=== PATIENT | male | born 1955 | race Hispanic/Latino ===

== ENCOUNTER → 2021-07-09 | Day surgery (SDC) | payer MEDICARE ==
[2021-07-08 08:22] LABS: BASOPHILS # (AUTO) 0.1 (0.0-0.1); EOSINOPHILS # (AUTO) 0.3 (0.0-0.4); EOSINOPHILS % 4.1 % (0.0-6.0); HEMATOCRIT 36.4 % (38.2-49.6); HEMOGLOBIN 12.2 g/dL (14.0-18.0); LYMPHOCYTES # (AUTO) 2.3 (1.0-3.2); LYMPHOCYTES % 29.6 % (18.0-39.1); MEAN CORPUSCULAR HEMOGLOBIN 29.8 pg (28-32); MEAN CORPUSCULAR HGB CONC 33.5 g/dL (31-35); MONOCYTES # (AUTO) 0.7 (0.2-0.8); MONOCYTES % 8.5 % (4.4-11.3); NEUTROPHILS # (AUTO) 4.4 (2.1-6.9); NEUTROPHILS % 56.5 % (38.7-80.0); PLATELET COUNT 252 x10e3/uL (140-360); RED BLOOD COUNT 4.09 x10e6/uL (4.3-5.7); RED CELL DISTRIBUTION WIDTH 13.1 % (11.7-14.4)
[2021-07-08 08:39] LABS: ANION GAP 15.3 mmol/L (8-16); CALCIUM 9.4 mg/dL (8.4-10.2); CREATININE, SERUM 1.16 mg/dL (0.72-1.25); POTASSIUM 3.3 mmol/L (3.5-5.1)
[~2021-07-09] MED LIST: ATORVASTATIN CA20 MG PO; BUPIVACAINE 0.25% 30ML SDV ONE; CLOPIDOGREL75 MG PO; DEXAMETHASONE SOD PHOS INJ 4 MG/ML SDV ONE; LIDOCAINE HCL 2% LOCAL INJ 5 ML SDV VIAL INJ ONE; LOSARTAN POTASS25 MG PO; METFORMIN HCL500 MG PO; NIFEDIPINE ER30 M1 PO; ONDANSETRON HCL INJ 2MG/ML 2ML 2 MG/ML VIAL ONE; POVIDONE IODINE 0.05% 0.05 % ML PO ONE; PROPOFOL IV EMULSION 10 MG/ML 20 ML VIAL ONE; SEVOFLURANE INHAL SOLN 250 ML PEN BTL ONE; SODIUM CHLORIDE 0.9% 50ML 50 ML ONE
[2021-07-09 10:00] VITALS: BP 137/82
== END | disposition home or self-care (01) ==
LOC: OR 06:19
PROVIDERS: ATTEND Urology
DX: D29.0 Benign neoplasm of penis (principal); N40.1 Benign prostatic hyperplasia with lower urinary tract symptoms; N13.8 Other obstructive and reflux uropathy; R35.1 Nocturia; R39.14 Feeling of incomplete bladder emptying; R80.9 Proteinuria, unspecified; R81 Glycosuria; E11.9 Type 2 diabetes mellitus without complications; I10 Essential (primary) hypertension; K21.9 Gastro-esophageal reflux disease without esophagitis; Z01.810 Encounter for preprocedural cardiovascular examination; Z01.812 Encounter for preprocedural laboratory examination; Z01.818 Encounter for other preprocedural examination; Z20.822 Contact with and (suspected) exposure to COVID-19; Z79.02 Long term (current) use of antithrombotics/antiplatelets; Z79.84 Long term (current) use of oral hypoglycemic drugs; Z86.73 Personal history of transient ischemic attack (TIA), and cerebral infarction without residual deficits
CPT/HCPCS: 11420; 36415 ×2; 71046; 80048; 82948; 85025; 88305; 88342; 93005; J0690; U0002; 88304; J1100; J2001; J2405

== ENCOUNTER 2022-07-04 13:18 | Observation (INO) | payer MEDICARE ==
[~2022-07-04] VITALS: Ht 167.6 cm; Wt 78.9 kg
[~2022-07-04 13:18] MED LIST changes: -BUPIVACAINE 0.25% 30ML SDV ONE; -DEXAMETHASONE SOD PHOS INJ 4 MG/ML SDV ONE; -LIDOCAINE HCL 2% LOCAL INJ 5 ML SDV VIAL INJ ONE; -ONDANSETRON HCL INJ 2MG/ML 2ML 2 MG/ML VIAL ONE; -POVIDONE IODINE 0.05% 0.05 % ML PO ONE; -PROPOFOL IV EMULSION 10 MG/ML 20 ML VIAL ONE; -SEVOFLURANE INHAL SOLN 250 ML PEN BTL ONE; -SODIUM CHLORIDE 0.9% 50ML 50 ML ONE
[2022-07-04] MEDS ORDERED: ADENOSINE 6 MG/2 ML VIAL IV ONE ×2 (14:15→15:00)
[2022-07-04] MEDS ORDERED: ADENOSINE 6 MG/2 ML VIAL IV STA (14:30)
[2022-07-04] MEDS ORDERED: DIGOXIN INJ 0.25 MG/ML 2 ML AMP IV STA (14:41)
[2022-07-04] MEDS ORDERED: DILTIAZEM HCL 5 MG/ML 5 ML VIAL IV STA (14:41)
[2022-07-04] MEDS ORDERED: METOPROLOL TARTRATE INJ 1 MG/ML VIAL IV STA (14:41)
[2022-07-04 14:51] LABS: BASOPHILS % 0.7 % (0.0-1.0); EOSINOPHILS # (AUTO) 0.2 (0.0-0.4); EOSINOPHILS % 3.7 % (0.0-6.0); HEMATOCRIT 33.1 % (38.2-49.6); LYMPHOCYTES # (AUTO) 2.2 (1.0-3.2); LYMPHOCYTES % 37.1 % (18.0-39.1); MEAN CORPUSCULAR HEMOGLOBIN 30.1 pg (28-32); MEAN CORPUSCULAR HGB CONC 33.2 g/dL (31-35); MEAN CORPUSCULAR VOLUME 90.4 fL (81-99); MONOCYTES # (AUTO) 0.5 (0.2-0.8); NEUTROPHILS % 49.3 % (38.7-80.0); PLATELET COUNT 243 x10e3/uL (140-360); RED BLOOD COUNT 3.66 x10e6/uL (4.3-5.7); RED CELL DISTRIBUTION WIDTH 13.2 % (11.7-14.4)
[2022-07-04 15:08] LABS: ALBUMIN 3.9 g/dL (3.5-5.0); ALBUMIN/GLOBULIN RATIO 1.2 (0.8-2.0); ANION GAP 15.9 mmol/L (8-16); CALCIUM 9.2 mg/dL (8.4-10.2); CREATININE, SERUM 1.68 mg/dL (0.72-1.25); POTASSIUM 3.9 mmol/L (3.5-5.1)
[2022-07-04 15:14] LABS: CREATINE KINASE MB 1.5 ng/mL (0-5.0)
[2022-07-04] MEDS ORDERED: Morphine 4mg INJECTION 4 MG/ML INJ IV PRN (15:15)
[2022-07-04] MEDS ORDERED: ONDANSETRON HCL INJ 2MG/ML 2ML 2 MG/ML VIAL IV PRN (15:15)
[2022-07-04] MEDS: SODIUM CHLORIDE 0.9% 1000ML 1,000 ML IV SCH (15:25)
[2022-07-04] MEDS ORDERED: DOCUSATE SODIUM 100 MG CAP PO PRN (17:00)
[2022-07-04] MEDS ORDERED: METOPROLOL TARTRATE INJ 1 MG/ML VIAL IV PRN (17:00)
[2022-07-04] MEDS ORDERED: MELATONIN 3 MG TAB PO PRN (17:00)
[2022-07-04] MEDS ORDERED: HYDRALAZINE HCL 20 MG/ML VIAL IV PRN (17:00)
[2022-07-04] MEDS ORDERED: GUAIFENESIN/DEXTROMETHORPHAN LIQD 5 ML UDC PO PRN (17:00)
[2022-07-04] MEDS ORDERED: ACETAMINOPHEN 325 MG TAB PO PRN (17:00)
[2022-07-04] MEDS ORDERED: ENOXAPARIN SOD INJ 40 MG/0.4 ML SYR SC SCH (17:30)
[2022-07-04] MEDS ORDERED: METOPROLOL TARTRATE 50 MG TAB PO ONE (17:30)
[2022-07-04 17:33] LABS: CHOL/HDL RATIO 4.5 (3.9-4.7); MAGNESIUM 1.7 MG/DL (1.3-2.1)
[2022-07-04 17:53] LABS: THYROID STIMULATING HORMONE 2.484 uIU/mL (0.350-4.940)
[2022-07-04] MEDS: AMIODARONE HCL 200 MG TAB PO SCH (18:17)
[2022-07-04] MEDS: ENOXAPARIN SOD INJ 60 MG/0.6 ML SYR SC SCH (18:17)
[2022-07-04] MEDS: METOPROLOL TARTRATE 50 MG TAB PO SCH (18:26)
[2022-07-04 20:00] VITALS: BP 125/81
[2022-07-04 20:30] LABS: AMPHETAMINES SCREEN,URINE NEGATIVE (NEGATIVE); BENZODIAZEPINES SCREEN,URINE NEGATIVE (NEGATIVE); PHENCYCLIDINE SCREEN,URINE NEGATIVE (NEGATIVE)
[2022-07-04] MEDS ORDERED: ATORVASTATIN 40 MG TAB PO SCH (21:00)
[2022-07-04] MEDS ORDERED: METOPROLOL TARTRATE 50 MG TAB PO SCH (22:00)
[2022-07-04 22:08] VITALS: BP 125/81
[2022-07-04 22:40] VITALS: BP 125/81
[2022-07-04] MEDS ORDERED: DEXTROSE 50% SYRINGE 50 ML IV PRN (23:00)
[2022-07-05] VITALS: BP 140/88
[2022-07-05] MEDS: METOPROLOL TARTRATE 50 MG TAB PO SCH
[2022-07-05 04:00] VITALS: BP 137/91
[2022-07-05 04:58] LABS: BASOPHILS # (AUTO) 0.1 (0.0-0.1); BASOPHILS % 1.1 % (0.0-1.0); EOSINOPHILS # (AUTO) 0.2 (0.0-0.4); EOSINOPHILS % 4.1 % (0.0-6.0); HEMOGLOBIN 10.2 g/dL (14.0-18.0); LYMPHOCYTES # (AUTO) 2.1 (1.0-3.2); LYMPHOCYTES % 39.2 % (18.0-39.1); MEAN CORPUSCULAR HEMOGLOBIN 30.3 pg (28-32); MEAN CORPUSCULAR HGB CONC 32.9 g/dL (31-35); MONOCYTES # (AUTO) 0.5 (0.2-0.8); NEUTROPHILS # (AUTO) 2.5 (2.1-6.9); NEUTROPHILS % 46.6 % (38.7-80.0); PLATELET COUNT 211 x10e3/uL (140-360); RED BLOOD COUNT 3.37 x10e6/uL (4.3-5.7); RED CELL DISTRIBUTION WIDTH 13.1 % (11.7-14.4)
[2022-07-05 05:24] LABS: ALBUMIN 3.3 g/dL (3.5-5.0); ALBUMIN/GLOBULIN RATIO 1.1 (0.8-2.0); ANION GAP 13.7 mmol/L (8-16); CALCIUM 8.7 mg/dL (8.4-10.2); CREATININE, SERUM 1.47 mg/dL (0.72-1.25); POTASSIUM 3.7 mmol/L (3.5-5.1)
[2022-07-05] MEDS: ENOXAPARIN SOD INJ 60 MG/0.6 ML SYR SC SCH (06:14)
[2022-07-05 06:16] LABS: CREATINE KINASE MB 1.3 ng/mL (0-5.0)
[2022-07-05] MEDS ORDERED: INSULIN REGULAR, HUMAN 100 UNIT/1 ML SQ SCH (07:30)
[2022-07-05 08:00] VITALS: BP 164/98
[2022-07-05 08:03] VITALS: BP 164/98
[2022-07-05] MEDS: SODIUM CHLORIDE 0.9% 1000ML 1,000 ML IV SCH (08:25)
[2022-07-05] MEDS ORDERED: MULTIVITAMINS/MINERALS TAB PO SCH (09:00)
[2022-07-05] MEDS ORDERED: LOSARTAN POTASSIUM 25 MG TAB PO SCH (09:00)
[2022-07-05] MEDS ORDERED: METOPROLOL TARTRATE 50 MG TAB PO SCH (09:00)
[2022-07-05] MEDS ORDERED: CLOPIDOGREL BISULFATE 75 MG TAB PO SCH (09:00)
[2022-07-05] MEDS: AMIODARONE HCL 200 MG TAB PO SCH (09:34)
[2022-07-05] MEDS ORDERED: AMIODARONE HCL200 MG PO (10:30)
[2022-07-05] MEDS ORDERED: METOPROLOL SUCC50 MG PO (10:30)
[2022-07-05] MEDS ORDERED: ELIQUIS5 MG PO (10:30)
[2022-07-05 11:30] VITALS: BP 158/94
== END 2022-07-05 12:11 | disposition home or self-care (01) ==
LOC: ER 13:30 → ERHOLD 15:09 → INTOOBSV 15:09 → MED/SURG 20:27
PROVIDERS: ADMIT Internal Medicine Critical Care Medicine; ATTEND Internal Medicine Critical Care Medicine
DX: I48.92 Unspecified atrial flutter (principal); E11.69 Type 2 diabetes mellitus with other specified complication; I10 Essential (primary) hypertension; I69.320 Aphasia following cerebral infarction; N17.9 Acute kidney failure, unspecified; R09.02 Hypoxemia; Z20.822 Contact with and (suspected) exposure to COVID-19
CPT/HCPCS: 0223U; 36415 ×2; 71045; 80053 ×2; 80061; 80307; 82550 ×2; 82553 ×2; 82948 ×2; 83690; 83735; 83880; 84443; 84484 ×2; 85025 ×2; 85379; 93005; 93306; 99251; 99284; G0378 ×2; J0153; J0360; J1160; J1650 ×2; J7030 ×2; J2270

== ENCOUNTER 2024-10-19 09:23 | Emergency (ER) | payer MEDICARE ==
[~2024-10-19] VITALS: Ht 167.6 cm; Wt 78.9 kg
[~2024-10-19 09:23] MED LIST changes: +AMIODARONE HCL200 MG PO; +ELIQUIS5 MG PO; +METOPROLOL SUCC50 MG PO
[2024-10-19 10:00] LABS: BASOPHILS % 0.4 % (0.0-1.0); EOSINOPHILS % 0.4 % (0.0-6.0); HEMATOCRIT 39.3 % (38.2-49.6); HEMOGLOBIN 12.9 g/dL (14.0-18.0); LYMPHOCYTES # (AUTO) 0.8 (1.0-3.2); MEAN CORPUSCULAR HEMOGLOBIN 31.8 pg (28-32); MEAN CORPUSCULAR HGB CONC 32.8 g/dL (31-35); MEAN CORPUSCULAR VOLUME 96.8 fL (81-99); MONOCYTES # (AUTO) 0.5 (0.2-0.8); MONOCYTES % 7.9 % (4.4-11.3); NEUTROPHILS # (AUTO) 5.5 (2.1-6.9); NEUTROPHILS % 80.2 % (38.7-80.0); PLATELET COUNT 165 x10e3/uL (140-360); RED BLOOD COUNT 4.06 x10e6/uL (4.3-5.7); RED CELL DISTRIBUTION WIDTH 12.1 % (11.7-14.4); WHITE BLOOD COUNT 6.82 x10e3/uL (4.8-10.8)
[2024-10-19] MEDS: ACETAMINOPHEN 325 MG TAB PO ONE (10:03)
[2024-10-19] MEDS: SODIUM CHLORIDE 0.9% 1000ML 1,000 ML IV SCH (10:03)
[2024-10-19] MEDS: ONDANSETRON HCL INJ 2MG/ML 2ML 2 MG/ML VIAL IV STA (10:04)
[2024-10-19] MEDS: KETOROLAC TROMETHAMINE 30 MG/ML VIAL IV STA (10:04)
[2024-10-19 10:29] LABS: ALBUMIN 4.2 g/dL (3.5-5.0); ANION GAP 17.4 mmol/L (8-16); BILIRUBIN,TOTAL 0.5 mg/dL (0.2-1.2); CALCIUM 9.3 mg/dL (8.4-10.2); CREATININE, SERUM 2.15 mg/dL (0.72-1.25); POTASSIUM 4.4 mmol/L (3.5-5.1); TOTAL PROTEIN 8.3 g/dL (6.5-8.1)
[2024-10-19 10:48] LABS: CORONAVIRUS COVID-19 AG NEGATIVE (NEGATIVE); INFLUENZA A AG POSITIVE (NEGATIVE); INFLUENZA B AG NEGATIVE (NEGATIVE)
[2024-10-19] MEDS: LACTATED RINGER'S 1,000 ML INJ ONE (11:00)
[2024-10-19 11:02] VITALS: PULSE 108; RESP 21; TEMP 100.7; O2SAT 95
[2024-10-19] MEDS ORDERED: XOFLUZA80 MG PO (12:18)
[2024-10-19] MEDS ORDERED: ONDANSETRON ODT4 MG PO (12:18)
== END 2024-10-19 12:49 | disposition home or self-care (01) ==
LOC: ER 09:26
DX: R50.9 Fever, unspecified (principal); J10.1 Influenza due to other identified influenza virus with other respiratory manifestations; R11.2 Nausea with vomiting, unspecified; E11.65 Type 2 diabetes mellitus with hyperglycemia; I10 Essential (primary) hypertension; I50.9 Heart failure, unspecified; E78.5 Hyperlipidemia, unspecified; K21.9 Gastro-esophageal reflux disease without esophagitis; Z11.52 Encounter for screening for COVID-19
CPT/HCPCS: 36415; 71045; 80053; 83605; 85025; 87040; 87428; 99284; J1885; J2405; J7030; J7121